=== PATIENT | female | born 1960 | race Caucasian/White ===

== ENCOUNTER 2019-10-22 00:10 | Observation (INO) | payer BC ==
[~2019-10-22] VITALS: Ht 152.4 cm; Wt 121.8 kg
--- NOTE | 2019-10-22 00:38 | NUR ---
BIBA FOR SYNCOPAL EPISODES, PT LOST BOWEL AND BLADDER CONTROL. PLACED VITALS SIGNS MONITORS, PT'S AT BEDSIDE.
[2019-10-22] MEDS ORDERED: SODIUM CHLORIDE 0.9% 1,000 ML IV ONE (00:50)
[2019-10-22] MEDS ORDERED: SODIUM CHLORIDE FLUSH 10ML SYR IVF ONE (01:00)
[2019-10-22] MEDS ORDERED: SODIUM CHLORIDE 0.9% 1,000ML IVBOLUS ONE (01:00)
[2019-10-22] MEDS ORDERED: ONDANSETRON 2MG/ML, 2ML IVPush ONE (01:00)
--- NOTE | 2019-10-22 01:05 | NUR ---
ERP AT BEDSIDE TO EVAL.
[2019-10-22] MEDS ORDERED: ONDANSETRON 2MG/ML, 2ML ONE (01:10)
--- NOTE | 2019-10-22 01:10 | NUR ---
LAB AND XRAY AT BEDSIDE.
[2019-10-22 01:22] LABS: BASOPHILS # (AUTO) 0.01 x10^3/uL (0-0.1); BASOPHILS % (AUTO) 0 % (0-1); EOSINOPHILS # (AUTO) 0.03 x10^3/uL (0-0.4); EOSINOPHILS % (AUTO) 0 % (1-7); LYMPHOCYTES # (AUTO) 0.64 x10^3/uL (1-3.4); LYMPHOCYTES % (AUTO) 5 % (22-44); MD NO; MEAN CORPUSCULAR HEMOGLOBIN 29.7 pg (27.0-34.8); MEAN CORPUSCULAR HGB CONC 33.9 g/dL (32.4-35.8); MEAN CORPUSCULAR VOLUME 87.5 fL (80-100); MONOCYTES # (AUTO) 0.47 x10^3/uL (0.2-0.8); MONOCYTES % (AUTO) 4 % (2-9); NEUTROPHILS # (AUTO) 12.03 x10^3/uL (1.8-6.8); NEUTROPHILS % (AUTO) 91 % (42-75); PLATELET COUNT 297 x10^3/uL (130-400); RED CELL DISTRIBUTION WIDTH 13.4 % (9.6-15.2)
[2019-10-22 01:31] LABS: ALANINE AMINOTRANSFERASE 31 U/L (12-78); ALBUMIN 4.1 g/dL (3.4-5.0); ANION GAP 9 mmol/L (5-15); CALCIUM 8.8 mg/dL (8.5-10.1); CHLORIDE 104 mmol/L (98-107)
[2019-10-22 01:35] LABS: ALKALINE PHOSPHATASE 76 U/L (45-117); BILIRUBIN,TOTAL 1.1 mg/dL (0.2-1.0); TOTAL PROTEIN 7.4 g/dL (6.4-8.2); TROPONIN I 0.015 ng/mL (0.000-0.045)
--- NOTE | 2019-10-22 03:01 | NUR ---
MULTIPLE FAMILY MEMBERS AT BEDSIDE. PT RESTING ON LISET BENNETT.
--- NOTE | 2019-10-22 03:54 | NUR ---
REPORT GIVEN TO BALBINA CASTRO.
[2019-10-22] MEDS ORDERED: INDIGESTION MED (03:57)
[2019-10-22] MEDS ORDERED: TRIAMTERENE PO (03:57)
[2019-10-22] MEDS ORDERED: SODIUM CHLORIDE FLUSH 10ML SYR IVF PRN (04:00)
[2019-10-22] MEDS ORDERED: POLYETHYLENE GLYCOL 17 GM PACKET PO PRN (04:00)
[2019-10-22] MEDS ORDERED: ONDANSETRON 2MG/ML, 2ML IVPush PRN (04:00)
[2019-10-22] MEDS ORDERED: ZOLPIDEM 5MG TABLET PO PRN (04:00)
[2019-10-22] MEDS ORDERED: ACETAMINOPHEN 325 MG TABLET PO PRN (04:00)
[2019-10-22] MEDS ORDERED: hydrALAzine 20 MG/ML, 1ML IVPush PRN (04:00)
[2019-10-22 04:32] VITALS: BP 137/97
[2019-10-22] MEDS: ENOXAPARIN 40 MG/0.4 ML SQ SCH (05:00)
[2019-10-22 07:38] LABS: HCT (SEDRATE) 43.5 % (34.6-47.8)
[2019-10-22 07:52] LABS: FREE T4 (FREE THYROXINE) 1.04 ng/dL (0.76-1.46); TROPONIN I 0.019 ng/mL (0.000-0.045)
[2019-10-22] MEDS ORDERED: REGADENOSON 0.4 MG/5 ML SYRINGE ONE (08:01)
[2019-10-22 08:07] VITALS: BP 149/89
[2019-10-22] MEDS: FAMOTIDINE 20 MG TABLET PO SCH ×2 (09:00→20:11)
[2019-10-22 10:55] LABS: TROPONIN I < 0.015 ng/mL (0.000-0.045)
[2019-10-22 14:08] VITALS: BP 119/76
[2019-10-22 19:03] VITALS: BP 112/76
[2019-10-23 00:29] LABS: AMPHETAMINE SCREEN, URINE Negative (Negative); BARBITURATE SCREEN, URINE Negative (Negative); BENZODIAZEPINE SCREEN, URINE Negative (Negative); CANNABINOID SCREEN, URINE Negative (Negative); COCAINE SCREEN, URINE Negative (Negative); METHADONE SCREEN, URINE Negative (Negative); OPIATE SCREEN, URINE Negative (Negative)
[2019-10-23 01:49] VITALS: BP 108/72
[2019-10-23] MEDS: ENOXAPARIN 40 MG/0.4 ML SQ SCH (05:08)
[2019-10-23 06:00] LABS: ANION GAP 8 mmol/L (5-15); CALCIUM 8.4 mg/dL (8.5-10.1); CHLORIDE 108 mmol/L (98-107)
[2019-10-23 06:14] LABS: BASOPHILS # (AUTO) 0.04 x10^3/uL (0-0.1); BASOPHILS % (AUTO) 1 % (0-1); EOSINOPHILS # (AUTO) 0.15 x10^3/uL (0-0.4); EOSINOPHILS % (AUTO) 3 % (1-7); LYMPHOCYTES # (AUTO) 2.07 x10^3/uL (1-3.4); LYMPHOCYTES % (AUTO) 35 % (22-44); MD NO; MEAN CORPUSCULAR HEMOGLOBIN 29.6 pg (27.0-34.8); MEAN CORPUSCULAR HGB CONC 33.5 g/dL (32.4-35.8); MEAN CORPUSCULAR VOLUME 88.5 fL (80-100); MEAN PLATELET VOLUME 8.6 fL (7.4-10.4); MONOCYTES # (AUTO) 0.64 x10^3/uL (0.2-0.8); MONOCYTES % (AUTO) 11 % (2-9); NEUTROPHILS % (AUTO) 51 % (42-75); PLATELET COUNT 316 x10^3/uL (130-400); RED BLOOD COUNT 4.66 x10^6/uL (3.82-5.3); RED CELL DISTRIBUTION WIDTH 13.3 % (9.6-15.2)
[2019-10-23 08:10] VITALS: BP 126/85
[2019-10-23] MEDS: FAMOTIDINE 20 MG TABLET PO SCH (08:13)
== END 2019-10-23 14:44 | disposition home or self-care (01) ==
LOC: ED 03:43 → INTOOBSV 04:06 → EDIP 04:06 → 5SO 04:28 → DCLOUNGE 10-23 14:35
PROVIDERS: ADMIT Hospitalist; ATTEND Internal Medicine
DX: R55 Syncope and collapse (principal); G90.9 Disorder of the autonomic nervous system, unspecified; I10 Essential (primary) hypertension; K21.9 Gastro-esophageal reflux disease without esophagitis; R32 Unspecified urinary incontinence; Z90.710 Acquired absence of both cervix and uterus; Z79.899 Other long term (current) drug therapy
CPT/HCPCS: 36415; 70450; 71045; 78452; 80048; 80053; 80307; 84439; 84443; 84484; 85025; 85651; 93005; 93017; 93306; 93880; 95819; 96360; 96361; 96372; 99285; A9502; C9898; G0378; J1650; J2785; J7030